=== PATIENT | female | born 1980 | race Caucasian/White ===

== ENCOUNTER 2018-09-24 19:56 | Emergency (ER) | payer BC ==
--- NOTE | 2018-09-24 20:33 | RAD REPORT ---
EXAM DESCRIPTION: CT - Head Brain Wo Cont - 09/24/2018 8:24 pm CLINICAL HISTORY: HEADACHE COMPARISON: MAXILLOFACIAL W O CONTRAST dated 04/25/2011 TECHNIQUE: All CT scans are performed using dose optimization technique as appropriate and may inclu de automated exposure control or mA/KV adjustment according to patient size. FINDINGS: No intracranial hemorrhage, hydrocephalus or extra-axial fluid collection.No areas of brai n edema or evidence of midline shift. The paranasal sinuses and mastoids are clear. The calvarium is intact. IMPRESSION: No acute intracranial abnormality.
[2018-09-24] MEDS ORDERED: NA CHLORIDE 0.9% 1,000 ML ONE (22:35)
[2018-09-24] MEDS ORDERED: METOCLOPRAMIDE 10 MG/2mL INJ ONE (23:13)
[2018-09-24] MEDS ORDERED: KETOROLAC 30 MG/ML INJ ONE (23:14)
[2018-09-24 23:30] LABS: Urine Blood NEGATIVE (NEG); Urine Glucose NEGATIVE (NEG); Urine Protein NEGATIVE (NEG); Urine Specific Gravity 1.015 (1.005-1.030)
--- NOTE | 2018-09-24 23:43 | EDPHYS ---
Physician Documentation [facility] Name: Katja Romero Age: 37 yrs Sex: Female : 1980 Arrival Date: 09/24/2018 Time: 20:01 Bed 18 Private MD: ED Physician Mehrdad Davis HPI: 09/24 23:39 This 37 yrs old Female presents to ER via Ambulatory with complaints of rn Headache. 23:39 The patient complains of pain to the forehead. rn 23:39 The patient describes the headache as aching. Onset: The symptoms/episode rn began/occurred yesterday. Associated signs and symptoms: Pertinent positives: blurred vision, Pertinent negatives: altered mental status, neck stiffness, rash, vision loss. Severity of symptoms: At its worst the pain was moderate, in the emergency department the pain has improved. The patient has not experienced similar symptoms in the past. Reports headache, generalized weakness and fatigue that began yesterday, no fever, no vomiting, no vision loss, reports had some blurry vision and lightheaded yesterday, no head trauma. Feeling better today but can't get in with her doctor so came in for eval. . DIRECTOR OF SPORTS MEDICINE: 20:05 LMP N/A - control method aj1 Historical: - Allergies: 20:05 Latex, Natural Rubber; aj1 20:05 Sulfa (Sulfonamide Antibiotics); aj1 - Home Meds: 20:05 None [Active]; aj1 - PMHx: 20:05 None; aj1 - PSHx: 20:05 Appendectomy; ; aj1 - Immunization history:: Flu vaccine is not up to date. - Social history:: Smoking status: Patient uses tobacco products, denies chronic smoking, but will smoke occasionally. - Ebola Screening: : Patient denies travel to an Ebola-affected area in the 21 days before illness onset. - Family history:: not pertinent. - Hospitalizations: : No recent hospitalization is reported. ROS: 23:39 Constitutional: Negative for fever, chills, and weight loss, Eyes: Negative for injury, rn pain, redness, and discharge, Neck: Negative for injury, pain, and swelling, Cardiovascular: Negative for chest pain, palpitations, and edema, Respiratory: Negative for shortness of breath, cough, wheezing, and pleuritic chest pain, Abdomen/GI: Negative for abdominal pain, nausea, vomiting, diarrhea, and constipation, : Negative for injury, bleeding, discharge, and swelling, MS/Extremity: Negative for injury and deformity, Skin: Negative for injury, rash, and discoloration, Neuro: Negative for numbness, tingling, and seizure. Exam: 23:39 Constitutional: This is a well developed, well nourished patient who is awake, alert, rn and in no acute distress. Smiling and legs crossed sitting upright in bed Head/Face: Normocephalic, atraumatic. Eyes: Pupils equal round and reactive to light, extra-ocular motions intact. Lids and lashes normal. Conjunctiva and sclera are non-icteric and not injected. Cornea within normal limits. Periorbital areas with no swelling, redness, or edema. ENT: Mucous membranes moist. Neck: Trachea midline, no thyromegaly or masses palpated, and no cervical lymphadenopathy. Supple, full range of motion without nuchal rigidity, or vertebral point tenderness. No Meningismus. Skin: Warm, dry with normal turgor. Normal color with no rashes, no lesions, and no evidence of cellulitis. MS/ Extremity: Pulses equal, no cyanosis. Neurovascular intact. Full, normal range of motion. Equal circumference. Neuro: Awake and alert, GCS 15, oriented to person, place, time, and situation. Cranial nerves II-XII grossly intact. Motor strength 5/5 in all extremities. Sensory grossly intact. Cerebellar exam normal. Vital Signs: 20:05 BP 119 / 81; Pulse 89; Resp 16; Temp 98.8; Pulse Ox 100% on R/A; Weight 63.5 kg (R); aj1 Height 5 ft. 6 in. (167.64 cm) (R); Pain 7/10; 21:30 BP 103 / 71; Pulse 66; Resp 16; Pulse Ox 100% on R/A; jb4 23:00 BP 116 / 79; Pulse 64; Resp 16; Pulse Ox 100% on R/A; jb4 23:45 BP 107 / 76; Pulse 76; Resp 16; Pulse Ox 100% on R/A; jb4 20:05 Body Mass Index 22.60 (63.50 kg, 167.64 cm) aj1 Flaco Coma Score: 23:39 Eye Response: spontaneous(4). Verbal Response: oriented(5). Motor Response: obeys rn commands(6). Total: 15. MDM: 21:30 Patient medically screened. rn 23:39 Differential diagnosis: migraine, tension headache, vasomotor headache, mono. Data rn reviewed: vital signs, nurses notes, lab test result(s), radiologic studies, CT scan, and as a result, I will discharge patient. Counseling: I had a detailed discussion with the patient and/or guardian regarding: the historical points, exam findings, and any diagnostic results supporting the discharge/admit diagnosis, lab results, radiology results, the need for outpatient follow up, to return to the emergency department if symptoms worsen or persist or if there are any questions or concerns that arise at home. Special discussion: I discussed with the patient/guardian in detail that at this point there is no indication for admission to the hospital. It is understood, however, that if the symptoms persist or worsen the patient needs to return immediately for re-evaluation. 09/24 21:37 Order name: Collin Screen Profile; Complete Time: 22:39 rn 09/24 22:54 Order name: Urine Dipstick--Ancillary (enter results); Complete Time: 23:37 ag4 09/24 20:08 Order name: CT Head Brain wo Cont; Complete Time: 21:30 aj1 09/24 22:54 Order name: Urine --Ancillary (enter results); Complete Time: 23:37 4 09/24 21:38 Order name: IV Start; Complete Time: 22:19 rn 09/24 21:38 Order name: Urine Dipstick-Ancillary (obtain specimen); Complete Time: 22:19 rn 09/24 21:38 Order name: Urine Test (obtain specimen); Complete Time: 22:19 rn Administered Medications: 23:18 Drug: NS 0.9% 1000 ml Route: IV; Rate: 1000 ml; Site: right antecubital; jb4 23:57 Follow up: Response: No adverse reaction; IV Status: Completed infusion jb4 23:18 Drug: Reglan 10 mg Route: IVP; Site: right antecubital; jb4 23:56 Follow up: Response: No adverse reaction jb4 23:20 Drug: TORadol 30 mg Route: IVP; Site: right antecubital; jb4 23:56 Follow up: Response: No adverse reaction; Pain is decreased jb4 Disposition: 09/24/18 23:42 Discharged to Home. Impression: Headache. - Condition is Stable. - Discharge Instructions: General Headache Without Cause. - Medication Reconciliation Form, Thank You Letter, Antibiotic Education, Prescription Opioid Use form. - Follow up: Private Physician; When: As needed; Reason: Recheck today's complaints, Re-evaluation by your physician. - Problem is new. - Symptoms have improved. Signatures: Dispatcher [employer] EDMarita James RN RN aj1 Mehrdad Davis MD MD rn Bryson, James, RN RN jb4 Corrections: (The following items were deleted from the chart) 23:57 23:42 09/24/2018 23:42 Discharged to Home. Impression: Headache. Condition is Stable. jb4 Forms are Medication Reconciliation Form, Thank You Letter, Antibiotic Education, Prescription Opioid Use. Follow up: Private Physician; When: As needed; Reason: Recheck today's complaints, Re-evaluation by your physician. Problem is new. Symptoms have improved. rn
--- NOTE | 2018-09-24 23:43 | ER ---
Nurse's Notes [facility] Name: Katja Romero Age: 37 yrs Sex: Female : 1980 Arrival Date: 09/24/2018 Time: 20:01 Bed 18 Private MD: Diagnosis: Headache Presentation: 09/24 20:01 Presenting complaint: Patient states: Headache, nausea, pain to right arm. Patient aj1 states that her speech was slurred yesterday and her vision was blurred and she gets dizzy. Reports that she has had this headache for over a week at this point, but she couldn't get in to see her doctor until . Patient ambulated to triage with a steady gait. Speech is clear. Equal smile, equal hand mattress and foundation sewer. Transition of care: patient was not received from another setting of care. Onset of symptoms was September 2018. Risk Assessment: Do you want to hurt yourself or someone else? Patient reports no desire to harm self or others. Initial Sepsis Screen: Does the patient meet any 2 criteria? No. Patient's initial sepsis screen is negative. Does the patient have a suspected source of infection? No. Patient's initial sepsis screen is negative. Care prior to arrival: None. 20:01 Method Of Arrival: Ambulatory aj1 20:01 Acuity: ANGELES 3 aj1 Triage Assessment: 20:05 Headache History: The patient has had previous headaches and this one is different than aj1 previous episodes. General: Appears in no apparent distress. uncomfortable, Behavior is calm, cooperative, appropriate for age. Pain: Complains of pain in entire head Pain does not radiate. Pain currently is 7 out of 10 on a pain scale. Quality of pain is described as pressure, sharp, shooting, stabbing, throbbing, Pain began one week ago Also complains of nausea, photophobia. Neuro: Level of Consciousness is awake, alert, obeys commands, Oriented to person, place, time, situation, Accounting Manager Assistant Controller are equal bilaterally Moves all extremities. Full function Gait is steady, Speech is normal, Facial symmetry appears normal, Reports dizziness, headache. Cardiovascular: Patient's skin is warm and dry. Respiratory: Airway is patent Respiratory effort is even, unlabored, Respiratory pattern is regular, symmetrical. TIE IN HAND: 20:05 LMP N/A - control method aj1 Historical: - Allergies: 20:05 Latex, Natural Rubber; aj1 20:05 Sulfa (Sulfonamide Antibiotics); aj1 - Home Meds: 20:05 None [Active]; aj1 - PMHx: 20:05 None; aj1 - PSHx: 20:05 Appendectomy; ; aj1 - Immunization history:: Flu vaccine is not up to date. - Social history:: Smoking status: Patient uses tobacco products, denies chronic smoking, but will smoke occasionally. - Ebola Screening: : Patient denies travel to an Ebola-affected area in the 21 days before illness onset. - Family history:: not pertinent. - Hospitalizations: : No recent hospitalization is reported. Screenin:10 Abuse screen: Denies threats or abuse. Nutritional screening: No deficits noted. jb4 Tuberculosis screening: No symptoms or risk factors identified. Fall Risk None identified. Assessment: 22:10 General: Appears in no apparent distress. comfortable, Behavior is calm, cooperative, jb4 appropriate for age. Pain: Complains of pain in headache. Pain radiates to right shoulder. Pain currently is 4 out of 10 on a pain scale. Neuro: Level of Consciousness is awake, alert, obeys commands, Oriented to person, place, time, situation, Reports blurred vision During headaches dizziness, With headaches slurred speech with headaches.. Cardiovascular: Patient's skin is warm and dry. Respiratory: Airway is patent Respiratory effort is even, unlabored, Respiratory pattern is regular, symmetrical. GI: No signs and/or symptoms were reported involving the gastrointestinal system. : No signs and/or symptoms were reported regarding the genitourinary system. EENT: No signs and/or symptoms were reported regarding the EENT system. Derm: Skin is intact, Skin is pink, warm \T\ dry. Musculoskeletal: Circulation, motion, and sensation intact. 23:45 Reassessment: Patient appears in no apparent distress at this time. Patient and/or jb4 family updated on plan of care and expected duration. Pain level reassessed. Patient is alert, oriented x 3, equal unlabored respirations, skin warm/dry/pink. 23:54 Reassessment: Discussed D/c, F/u with pt, denies questions or concerns. jb4 Vital Signs: 20:05 BP 119 / 81; Pulse 89; Resp 16; Temp 98.8; Pulse Ox 100% on R/A; Weight 63.5 kg (R); aj1 Height 5 ft. 6 in. (167.64 cm) (R); Pain 7/10; 21:30 BP 103 / 71; Pulse 66; Resp 16; Pulse Ox 100% on R/A; jb4 23:00 BP 116 / 79; Pulse 64; Resp 16; Pulse Ox 100% on R/A; jb4 23:45 BP 107 / 76; Pulse 76; Resp 16; Pulse Ox 100% on R/A; jb4 20:05 Body Mass Index 22.60 (63.50 kg, 167.64 cm) aj1 Flaco Coma Score: 23:39 Eye Response: spontaneous(4). Verbal Response: oriented(5). Motor Response: obeys rn commands(6). Total: 15. ED Course: 20:01 Patient arrived in ED. aj1 20:04 Triage completed. aj1 20:05 Arm band placed on Patient placed in waiting room, Patient notified of wait time. aj1 20:[address] AMBULATORY. bq 20:23 CT completed. Patient tolerated procedure well. bq 20:23 Patient taken to [facility], ambulatory, Patient moved back from CT. bq 20:28 CT Head Brain wo Cont In Process Unspecified. EDMS 21:30 Mehrdad Davis MD is Attending Physician. rn 22:10 Patient has correct armband on for positive identification. Placed in gown. Bed in low jb4 position. Call light in reach. Side rails up X 1. Pulse ox on. NIBP on. 22:10 Initial lab(s) drawn, by ED staff, sent to lab. Inserted saline lock: 20 gauge in right jb4 antecubital area, using aseptic technique. Blood collected. 22:18 Akira Guevara, PIYUSH is Primary Nurse. jb4 23:57 No provider procedures requiring assistance completed. IV discontinued, intact, jb4 bleeding controlled. Administered Medications: 23:18 Drug: NS 0.9% 1000 ml Route: IV; Rate: 1000 ml; Site: right antecubital; jb4 23:57 Follow up: Response: No adverse reaction; IV Status: Completed infusion jb4 23:18 Drug: Reglan 10 mg Route: IVP; Site: right antecubital; jb4 23:56 Follow up: Response: No adverse reaction jb4 23:20 Drug: TORadol 30 mg Route: IVP; Site: right antecubital; jb4 23:56 Follow up: Response: No adverse reaction; Pain is decreased jb4 Outcome: 23:42 Discharge ordered by . rn 23:57 Discharged to home ambulatory, with significant other. jb4 23:57 Condition: stable 23:57 Discharge instructions given to patient, significant other, Instructed on discharge instructions, follow up and referral plans. Demonstrated understanding of instructions, follow-up care. 23:57 Patient left the ED. jb4 Signatures: Dispatcher [employer] EDMarita James, RN RN aj1 Denise Jordan Roman, MD MD rn Bryson, James, RN RN jb4
[2018-09-25 01:37] VITALS: TEMP 98.8; O2SAT 100
[2018-09-25 01:41] VITALS: BP 107/76
== END 2018-09-24 23:57 | disposition home or self-care (01) ==
LOC: ER 19:56
DX: R51 Headache (principal); Z72.0 Tobacco use; Z88.2 Allergy status to sulfonamides; Z91.040 Latex allergy status
CPT/HCPCS: 36415; 70450; 81003; 81025; 86308; 96361; 96374; 96375; 99284; J2765; J7030